=== PATIENT | female | born 1965 | race Asian ===

== ENCOUNTER 2019-02-04 20:32 | Inpatient (IN) | payer OTHER ==
[~2019-02-04] VITALS: Ht 157.5 cm; Wt 45.0 kg
[2019-02-04 20:34] VITALS: Ht 157.5 cm; Wt 45.0 kg
[2019-02-04 21:05] LABS: BASOPHIL % 0.3 % (0-2); RED CELL DISTRIBUTION WIDTH 13.5 % (11.5-14.5)
[2019-02-04 21:11] LABS: PLATELET COUNT 573 x10^3mcL (130-400)
[2019-02-04 21:32] LABS: ALKALINE PHOSPHATASE 128 U/L (46-116); ALT/SGPT 23 U/L (14-59); AST/SGOT 12 U/L (15-37); BILIRUBIN TOTAL 0.24 mg/dL (0.20-1.00); CALCIUM 9.3 mg/dL (8.5-10.1); CARBON DIOXIDE 38.1 mmol/L (21-32); CHLORIDE SERUM 96 mmol/L (98-107); CREATININE SERUM 0.7 mg/dL (0.6-1.0); GFR1 > 60 mL/min; GLUCOSE SERUM 234 mg/dL (74-106); POTASSIUM SERUM 4.1 mmol/L (3.5-5.1); SODIUM SERUM 138 mmol/L (136-145); TOTAL PROTEIN, SERUM 7.4 g/dL (6.4-8.2)
[2019-02-04 21:33] LABS: ALBUMIN 2.2 g/dL (3.4-5.0)
[2019-02-05 00:06] LABS: CHOLESTEROL/HDL RATIO 3.2; MAGNESIUM 2.3 mg/dL (1.8-2.4); PHOSPHOROUS 3.1 mg/dL (2.5-4.9)
[2019-02-05] MEDS ORDERED: DOXYCYCLINE HY100 MG PO (00:16)
[2019-02-05] MEDS ORDERED: GLIPIZIDE5 M2 PO (00:17)
[2019-02-05] MEDS ORDERED: MIDODRINE HCL10 MG PO (00:17)
[2019-02-05] MEDS ORDERED: LAC PO (00:17)
[2019-02-05] MEDS ORDERED: TRAMADOL HCL50 MG PO (00:18)
[2019-02-05] MEDS ORDERED: PREDNISONE20 MG PO (00:18)
[2019-02-05] MEDS ORDERED: BACTRIM DS1 TAB PO (00:18)
[2019-02-05] MEDS ORDERED: ANASTROZOLE1 M1 PO (00:19)
[2019-02-05] MEDS ORDERED: ATROVENT H0.017 MG/1 INH (00:19)
[2019-02-05] MEDS ORDERED: BUDESONIDE0.25 MG/2 NEB (00:19)
[2019-02-05] MEDS ORDERED: MP PO (00:20)
[2019-02-05] MEDS ORDERED: PANTOPRAZOLE SO40 M1 PO (00:20)
[2019-02-05 02:28] VITALS: BP 121/70
[2019-02-05 03:53] VITALS: BP 100/56
[2019-02-05 05:45] VITALS: BP 102/56
[2019-02-05 06:35] LABS: BASOPHIL % 0.6 % (0-2); RED CELL DISTRIBUTION WIDTH 13.5 % (11.5-14.5)
[2019-02-05 07:25] LABS: CALCIUM 8.5 mg/dL (8.5-10.1); CARBON DIOXIDE 39.5 mmol/L (21-32); CHLORIDE SERUM 98 mmol/L (98-107); CREATININE SERUM 0.5 mg/dL (0.6-1.0); GFR1 > 60 mL/min; GLUCOSE SERUM 207 mg/dL (74-106); MAGNESIUM 2.1 mg/dL (1.8-2.4); PHOSPHOROUS 3.3 mg/dL (2.5-4.9); POTASSIUM SERUM 4.1 mmol/L (3.5-5.1); SODIUM SERUM 138 mmol/L (136-145)
[2019-02-05 08:19] LABS: PLATELET COUNT 495 x10^3mcL (130-400)
[2019-02-05 08:55] VITALS: BP 126/73
[2019-02-05 17:57] VITALS: BP 147/83
[2019-02-05 20:55] VITALS: BP 128/74
[2019-02-06 06:05] VITALS: BP 91/46
[2019-02-06 06:45] VITALS: BP 117/61
[2019-02-06 07:10] LABS: CALCIUM 9.1 mg/dL (8.5-10.1); CHLORIDE SERUM 95 mmol/L (98-107); CREATININE SERUM 0.8 mg/dL (0.6-1.0); GFR1 > 60 mL/min; GLUCOSE SERUM 252 mg/dL (74-106); MAGNESIUM 2.1 mg/dL (1.8-2.4); PHOSPHOROUS 3.9 mg/dL (2.5-4.9); POTASSIUM SERUM 3.8 mmol/L (3.5-5.1); SODIUM SERUM 139 mmol/L (136-145)
[2019-02-06 07:13] LABS: CARBON DIOXIDE 40.1 mmol/L (21-32)
[2019-02-06 07:34] LABS: RED CELL DISTRIBUTION WIDTH 13.6 % (11.5-14.5)
[2019-02-06 07:35] LABS: BASOPHIL % 0 % (0-2); PLATELET COUNT 482 x10^3mcL (130-400)
[2019-02-06 08:23] VITALS: BP 104/68
[2019-02-06 13:11] VITALS: BP 108/62
[2019-02-06 16:58] VITALS: BP 142/66
[2019-02-06 19:54] VITALS: BP 101/60
[2019-02-07 04:52] VITALS: BP 120/64
[2019-02-07 07:45] LABS: RED CELL DISTRIBUTION WIDTH 13.8 % (11.5-14.5)
[2019-02-07 07:48] LABS: CALCIUM 9.2 mg/dL (8.5-10.1); CHLORIDE SERUM 100 mmol/L (98-107); CREATININE SERUM 0.8 mg/dL (0.6-1.0); GFR1 > 60 mL/min; GLUCOSE SERUM 235 mg/dL (74-106); MAGNESIUM 2.4 mg/dL (1.8-2.4); POTASSIUM SERUM 3.6 mmol/L (3.5-5.1); SODIUM SERUM 141 mmol/L (136-145)
[2019-02-07 08:01] LABS: BASOPHIL % 0 % (0-2)
[2019-02-07 08:09] LABS: PLATELET COUNT 548 x10^3mcL (130-400)
[2019-02-07 09:09] VITALS: BP 117/66
[2019-02-07 09:57] LABS: CARBON DIOXIDE 44.2 mmol/L (21-32)
[2019-02-07 12:19] LABS: UA SPECIFIC GRAVITY 1.025 (1.005-1.035); microscopic required? YES; urine erythrocyte NEGATIVE (NEGATIVE)
[2019-02-07 12:36] VITALS: BP 120/60
[2019-02-07 16:33] VITALS: BP 140/71
[2019-02-07 21:39] VITALS: BP 141/78
[2019-02-08 05:32] VITALS: BP 153/75
[2019-02-08 08:57] VITALS: BP 153/70
[2019-02-08] MEDS ORDERED: PROZ20 PO (10:17)
[2019-02-08 12:14] VITALS: BP 153/70
[2019-02-08 13:49] VITALS: BP 143/83
[2019-02-08 17:10] VITALS: BP 142/73
[2019-02-08 20:20] VITALS: BP 120/67
[2019-02-09 05:28] VITALS: BP 146/86
[2019-02-09 06:04] LABS: RED CELL DISTRIBUTION WIDTH 14.4 % (11.5-14.5)
[2019-02-09 06:08] LABS: CALCIUM 9.1 mg/dL (8.5-10.1); CHLORIDE SERUM 101 mmol/L (98-107); CREATININE SERUM 0.7 mg/dL (0.6-1.0); GFR1 > 60 mL/min; GLUCOSE SERUM 148 mg/dL (74-106); MAGNESIUM 2.2 mg/dL (1.8-2.4); PHOSPHOROUS 3.3 mg/dL (2.5-4.9); POTASSIUM SERUM 3.4 mmol/L (3.5-5.1); SODIUM SERUM 140 mmol/L (136-145)
[2019-02-09 06:10] LABS: CARBON DIOXIDE 43.7 mmol/L (21-32)
[2019-02-09 06:29] LABS: BASOPHIL % 0 % (0-2); PLATELET COUNT 612 x10^3mcL (130-400)
[2019-02-09 09:17] VITALS: BP 149/77
[2019-02-09 13:43] VITALS: BP 145/80
[2019-02-09 17:51] VITALS: BP 156/82
[2019-02-09 20:50] VITALS: BP 145/94
[2019-02-10] VITALS (10 sets, daily range): BP systolic 133–176; BP diastolic 68–86
[2019-02-10 06:39] LABS: RED CELL DISTRIBUTION WIDTH 14.4 % (11.5-14.5)
[2019-02-10 07:17] LABS: CHLORIDE SERUM 94 mmol/L (98-107); CREATININE SERUM 0.7 mg/dL (0.6-1.0); GFR1 > 60 mL/min; GLUCOSE SERUM 245 mg/dL (74-106); MAGNESIUM 2.2 mg/dL (1.8-2.4); PHOSPHOROUS 3.8 mg/dL (2.5-4.9); POTASSIUM SERUM 4.1 mmol/L (3.5-5.1); SODIUM SERUM 138 mmol/L (136-145)
[2019-02-10 07:33] LABS: CARBON DIOXIDE 41.3 mmol/L (21-32)
[2019-02-10 07:42] LABS: BASOPHIL % 0 % (0-2); PLATELET COUNT 517 x10^3mcL (130-400)
[2019-02-11 05:46] VITALS: BP 129/70
[2019-02-11 06:26] LABS: CALCIUM 9.1 mg/dL (8.5-10.1); CHLORIDE SERUM 97 mmol/L (98-107); CREATININE SERUM 0.7 mg/dL (0.6-1.0); GFR1 > 60 mL/min; GLUCOSE SERUM 273 mg/dL (74-106); MAGNESIUM 2.3 mg/dL (1.8-2.4); PHOSPHOROUS 2.5 mg/dL (2.5-4.9); SODIUM SERUM 140 mmol/L (136-145)
[2019-02-11 07:24] LABS: BASOPHIL % 0 % (0-2); RED CELL DISTRIBUTION WIDTH 14.6 % (11.5-14.5)
[2019-02-11 07:25] LABS: PLATELET COUNT 506 x10^3mcL (130-400)
[2019-02-11 09:28] VITALS: BP 145/61
[2019-02-11 13:58] VITALS: BP 139/69
[2019-02-11 18:16] VITALS: BP 139/63
[2019-02-11 20:24] VITALS: BP 159/59
[2019-02-12 05:17] VITALS: BP 163/77
[2019-02-12 07:47] VITALS: BP 144/67
[2019-02-12 08:35] LABS: BASOPHIL % 0 % (0-2); PLATELET COUNT 532 x10^3mcL (130-400); RED CELL DISTRIBUTION WIDTH 14.9 % (11.5-14.5)
[2019-02-12] MEDS ORDERED: AUG500 PO (10:45)
[2019-02-12] MEDS ORDERED: MEDDP PO (10:46)
[2019-02-12 11:45] VITALS: BP 152/77
[2019-02-12 11:51] VITALS: BP 152/77
[2019-02-12 13:42] LABS: CALCIUM 9.1 mg/dL (8.5-10.1); CHLORIDE SERUM 99 mmol/L (98-107); CREATININE SERUM 0.6 mg/dL (0.6-1.0); GFR1 > 60 mL/min; GLUCOSE SERUM 190 mg/dL (74-106); MAGNESIUM 2.3 mg/dL (1.8-2.4); PHOSPHOROUS 2.2 mg/dL (2.5-4.9); POTASSIUM SERUM 4.1 mmol/L (3.5-5.1); SODIUM SERUM 143 mmol/L (136-145)
[2019-02-12 13:44] LABS: CARBON DIOXIDE 40.1 mmol/L (21-32)
[2019-02-12 16:26] VITALS: BP 167/79
[2019-02-12 20:18] VITALS: BP 150/84
[2019-02-13 05:04] VITALS: BP 149/84
[2019-02-13 06:26] LABS: ALKALINE PHOSPHATASE 94 U/L (46-116); ALT/SGPT 37 U/L (14-59); AST/SGOT 24 U/L (15-37); BILIRUBIN TOTAL 0.4 mg/dL (0.20-1.00); CHLORIDE SERUM 98 mmol/L (98-107); CREATININE SERUM 0.5 mg/dL (0.6-1.0); GFR1 > 60 mL/min; GLUCOSE SERUM 89 mg/dL (74-106); POTASSIUM SERUM 4.1 mmol/L (3.5-5.1); SODIUM SERUM 139 mmol/L (136-145); TOTAL PROTEIN, SERUM 6.4 g/dL (6.4-8.2)
[2019-02-13 06:50] LABS: CARBON DIOXIDE 42.5 mmol/L (21-32)
[2019-02-13 06:51] LABS: ALBUMIN 2.3 g/dL (3.4-5.0)
[2019-02-13 07:26] LABS: BASOPHIL % 0 % (0-2); RED CELL DISTRIBUTION WIDTH 15.4 % (11.5-14.5)
[2019-02-13 07:37] LABS: PLATELET COUNT 543 x10^3mcL (130-400)
[2019-02-13 08:01] VITALS: BP 142/81
[2019-02-13 11:59] VITALS: BP 147/67
== END 2019-02-13 17:37 | disposition home health service (06) | DRG 193 ==
LOC: ED 20:32 → DU 23:37
PROVIDERS: Emergency Medicine; Family Medicine; Internal Medicine; ADMIT Internal Medicine
PROC: 0W9B3ZZ Drainage of Left Pleural Cavity, Percutaneous Approach (ICD-10-PCS; 2019-02-07)
PROC: 0W9B3ZZ Drainage of Left Pleural Cavity, Percutaneous Approach (ICD-10-PCS; principal; 2019-02-13)
DX: J18.9 Pneumonia, unspecified organism (principal); E43 Unspecified severe protein-calorie malnutrition; N17.0 Acute kidney failure with tubular necrosis; G93.41 Metabolic encephalopathy; J96.21 Acute and chronic respiratory failure with hypoxia; Z68.1 Body mass index [BMI] 19.9 or less, adult; C78.02 Secondary malignant neoplasm of left lung; C78.01 Secondary malignant neoplasm of right lung; J90 Pleural effusion, not elsewhere classified; E87.2 Acidosis; D47.3 Essential (hemorrhagic) thrombocythemia; C50.919 Malignant neoplasm of unspecified site of unspecified female breast; E11.65 Type 2 diabetes mellitus with hyperglycemia; E78.2 Mixed hyperlipidemia; D64.9 Anemia, unspecified; Z79.84 Long term (current) use of oral hypoglycemic drugs; Z80.3 Family history of malignant neoplasm of breast; Z66 Do not resuscitate; Z79.899 Other long term (current) drug therapy
CPT/HCPCS: 32555; 82962; 83880; 87046; 87046-59; 87804; 97110-GP; 97116-GP; 97530-GP; C1729; C9113; G0378; J1644; J1815; J1940; J2060; J2405; J2543; J2920; J3490; J7030; J7512; J7613; J7620; J7633; J7644; Q0092; Q9967